=== PATIENT | female | born 1980 | race Two or more races ===

== ENCOUNTER 2017-03-09 23:52 | Emergency (ER) | payer SELFPAY ==
[2017-03-10] MEDS ORDERED: ONDANSETRON 4 MG/2 ML VIAL IVP ONE ×2 (00:19→01:53)
[2017-03-10] MEDS ORDERED: HYDROmorphONE/DILAUDID 1 MG/ML SYR IVP ONE ×2 (00:19→01:03)
[2017-03-10] MEDS ORDERED: NS 1,000 ML IV ONE ×2 (00:19→01:53)
--- NOTE | 2017-03-10 00:36 | EDPHY ---
H & P Stated Complaint: l flank pain, nausea, vomiting HPI/ROS: HPI CHIEF COMPLAINT: Left flank pain HISTORY OF PRESENT ILLNESS: This patient 36-year-old female, she presents emergency room left flank pain. She describes as sharp stabbing. She states around 11:30 p.m. she got up to urinate and felt dysuria burning at her urethra. This then somewhat subsided she went downstairs to drink water. She ended up developing severe 9/10 left-sided sharp stabbing flank pain. With associated nausea but no vomiting. No fever. She now has 2/10 left flank pain at this time. No history of kidney stones or pathology. Past Medical History: No significant medical history Past Surgical History: No significant surgical history Social History: Denies daily use drugs alcohol tobacco products. Family History: Noncontributory ROS REVIEW OF SYSTEMS: A comprehensive 10 point review of systems is otherwise negative aside from elements mentioned in the history of present illness. Exam Constitutional appears well nontoxic triage nursing summary reviewed, vital signs reviewed, awake/alert. Eyes normal conjunctivae and sclera, EOMI, PERRLA. HENT normal inspection, atraumatic, moist mucus membranes, no epistaxis, neck supple/ no meningismus, no raccoon eyes. Respiratory clear to auscultation bilaterally, normal breath sounds, no respiratory distress, no wheezing. Cardiovascular rate normal, regular rhythm, no murmur, no edema, distal pulses normal. Gastrointestinal soft, non-tender, no rebound, no guarding, normal bowel sounds, no distension, no pulsatile mass. Genitourinary mild left CVA tenderness Musculoskeletal no midline vertebral tenderness, full range of motion, no calf swelling, no tenderness of extremities, no meningismus, good pulses, neurovascularly intact. Skin pink, warm, & dry, no rash, skin atraumatic. Neurologic awake, alert and oriented x 3, AAOx3, moves all 4 extremities equally, motor intact, sensory intact, CN II-XII intact, normal cerebellar, normal vision, normal speech. Psychiatric normal mood/affect. Heme/Lymph/Immune no lymphadenopathy. Differential Diagnosis: Includes but is not limited to kidney stone, hydroureter, hydronephrosis, pyelonephritis, UTI Medical Decision Making: Plan for this patient IV establishment, pain medicine , urinalysis blood work CT abdomen pelvis without contrast for kidney stone evaluation. test. Re-evaluation: 0312AM: Patient's CT scan results show a 3 mm left-sided UVJ stone. Stone is almost in the bladder. There is mild hydro. I have updated the patient. She is comfortable at this time. No ongoing severe pain vomiting or fever. Urinalysis does not indicate a UTI. I will have her follow up with Urology, Flomax, drink lots of fluids Kelley and Zofran. She understands return emergency room if develops worsening pain vomiting or fever. Urine strainer. Source: Patient - Personal History LMP (Females 10-55): Now - Medical/Surgical History Hx Asthma: No Hx Chronic Respiratory Disease: No Hx Diabetes: No Hx Cardiac Disease: No Hx Renal Disease: No Hx Cirrhosis: No Hx Alcoholism: No Hx HIV/AIDS: No Hx Splenectomy or Spleen Trauma: No Other PMH: Denies - Social History Smoking Status: Never smoked Constitutional: Initial Vital Signs Heart Rate 110 H 03/09/17 23:53 Respiratory Rate 30 H 03/09/17 23:53 Blood Pressure 144/110 H 03/09/17 23:53 O2 Sat (%) 100 03/09/17 23:53 O2 Delivery Mode Room Air Allergies/Adverse Reactions: Penicillins Allergy (Verified 03/09/17 23:56) Home Medications: Medication Instructions Recorded Hydrocodone/APAP 5/325 [Kelley 1 - 2 tab PO Q4H PRN #10 tab 03/10/17 5/325] Ondansetron HCl [Zofran] 4 mg PO Q4-6PRN PRN #10 tablet 03/10/17 Tamsulosin HCl [Flomax] 0.4 mg PO DAILY #10 cap 03/10/17 Medical Decision Making - Data Points Laboratory Results: Laboratory Results 03/10/17 00:07 03/10/17 00:07 03/10/17 03/10/17 03/10/17 00:45 00:07 00:07 WBC RBC Hgb Hct MCV MCH MCHC RDW Plt Count MPV Neut % (Auto) Lymph % (Auto) [place] % (Auto) Eos % (Auto) Baso % (Auto) Nucleat RBC Rel Count Absolute Neuts (auto) Absolute Lymphs (auto) Absolute Monos (auto) Absolute Eos (auto) Absolute Basos (auto) Absolute Nucleated RBC Immature Gran % Immature Gran # Sodium 141 mEq/L mEq/L (134-144) Potassium 3.4 mEq/L L mEq/L (3.5-5.2) Chloride 102 mEq/L mEq/L (97-110) Carbon Dioxide 22 mEq/l mEq/l (22-31) Anion Gap 17 mEq/L H mEq/L (8-16) BUN 12 mg/dL mg/dL (7-23) Creatinine 0.7 mg/dL mg/dL (0.6-1.0) Estimated GFR > 60 Glucose 77 mg/dL mg/dL (70-100) Calcium 9.8 mg/dL mg/dL (8.5-10.4) Total Bilirubin 0.5 mg/dL mg/dL (0.1-1.4) Conjugated Bilirubin 0.2 mg/dL mg/dL (0.0-0.5) Unconjugated Bilirubin 0.3 mg/dL mg/dL (0.0-1.1) AST 21 IU/L IU/L (14-46) ALT 23 IU/L IU/L (9-52) Alkaline Phosphatase 45 IU/L IU/L (38-126) Total Protein 8.2 g/dL g/dL (6.3-8.2) Albumin 4.6 g/dL g/dL (3.5-5.0) Lipase 142.0 IU/L IU/L (23-300) Beta HCG, Qual NEGATIVE Urine Color YELLOW Urine Appearance CLEAR Urine pH 7.0 (5.0-7.5) Ur Specific [place] 1.010 (1.002-1.030) Urine Protein NEGATIVE (NEGATIVE) Urine Ketones NEGATIVE (NEGATIVE) Urine Blood 2+ H (NEGATIVE) Urine Nitrate NEGATIVE (NEGATIVE) Urine Bilirubin NEGATIVE (NEGATIVE) Urine Urobilinogen NEGATIVE EU EU (0.2-1.0) Ur Leukocyte Esterase NEGATIVE (NEGATIVE) Urine RBC 3-5 /hpf H /hpf (0-3) Urine WBC 1-3 /hpf /hpf (0-3) Ur Epithelial Cells TRACE /lpf /lpf (NONE-1+) Urine Mucus TRACE /lpf /lpf (NONE-1+) Urine Glucose NEGATIVE (NEGATIVE) 03/10/17 00:07 WBC 8.57 10^3/uL 10^3/uL (3.80-9.50) RBC 4.64 10^6/uL 10^6/uL (4.18-5.33) Hgb 14.1 g/dL g/dL (12.6-16.3) Hct 40.9 % % (38.0-47.0) MCV 88.1 fL fL (81.5-99.8) MCH 30.4 pg pg (27.9-34.1) MCHC 34.5 g/dL g/dL (32.4-36.7) RDW 12.4 % % (11.5-15.2) Plt Count 272 10^3/uL 10^3/uL (150-400) MPV 13.0 fL H fL (8.7-11.7) Neut % (Auto) 48.3 % % (39.3-74.2) Lymph % (Auto) 43.6 % % (15.0-45.0) [place] % (Auto) 6.7 % % (4.5-13.0) Eos % (Auto) 0.5 % L % (0.6-7.6) Baso % (Auto) 0.7 % % (0.3-1.7) Nucleat RBC Rel Count 0.0 % % (0.0-0.2) Absolute Neuts (auto) 4.14 10^3/uL 10^3/uL (1.70-6.50) Absolute Lymphs (auto) 3.74 10^3/uL H 10^3/uL (1.00-3.00) Absolute Monos (auto) 0.57 10^3/uL 10^3/uL (0.30-0.80) Absolute Eos (auto) 0.04 10^3/uL 10^3/uL (0.03-0.40) Absolute Basos (auto) 0.06 10^3/uL 10^3/uL (0.02-0.10) Absolute Nucleated RBC 0.00 10^3/uL 10^3/uL (0-0.01) Immature Gran % 0.2 % % (0.0-1.1) Immature Gran # 0.02 10^3/uL 10^3/uL (0.00-0.10) Sodium Potassium Chloride Carbon Dioxide Anion Gap BUN Creatinine Estimated GFR Glucose Calcium Total Bilirubin Conjugated Bilirubin Unconjugated Bilirubin AST ALT Alkaline Phosphatase Total Protein Albumin Lipase Beta HCG, Qual Urine Color Urine Appearance Urine pH Ur Specific [place] Urine Protein Urine Ketones Urine Blood Urine Nitrate Urine Bilirubin Urine Urobilinogen Ur Leukocyte Esterase Urine RBC Urine WBC Ur Epithelial Cells Urine Mucus Urine Glucose Medications Given: Discontinued Medications Hydromorphone HCl (Dilaudid) 0.5 mg IVP EDNOW ONE Stop: 03/10/17 00:20 Last Admin: 03/10/17 00:25 Dose: 0.5 mg Hydromorphone HCl (Dilaudid) 0.5 mg IVP EDNOW ONE Stop: 03/10/17 01:04 Last Admin: 03/10/17 01:07 Dose: 0.5 mg Sodium Chloride (Ns) 1,000 mls @ 0 mls/hr IV EDNOW ONE; Wide Open PRN Reason: Protocol Stop: 03/10/17 00:20 Last Admin: 03/10/17 00:27 Dose: 1,000 mls Sodium Chloride (Ns) 1,000 mls @ 0 mls/hr IV ONCE ONE PRN Reason: Wide Open Stop: 03/10/17 01:54 Last Admin: 03/10/17 01:55 Dose: 1,000 mls Ketorolac Tromethamine (Toradol) 15 mg IVP EDNOW ONE Stop: 03/10/17 01:20 Last Admin: 03/10/17 01:31 Dose: 15 mg Ondansetron HCl (Zofran) 4 mg IVP EDNOW ONE Stop: 03/10/17 00:20 Last Admin: 03/10/17 00:25 Dose: 4 mg Ondansetron HCl (Zofran) 4 mg IVP EDNOW ONE Stop: 03/10/17 01:54 Last Admin: 03/10/17 01:56 Dose: 4 mg Departure - Departure Disposition: Home, Routine, Self-Care Clinical Impression: Kidney stone Condition: Good Instructions: Renal Colic (ED), Kidney Stones (ED), Flank Pain (ED) Additional Instructions: 1. Drink lots of fluids stay well-hydrated. 2. Return to the emergency room if you develop worsening pain questions or concerns. 3. You have a very small stone on the left distal ureter it is almost into your bladder. Referrals: OBEY HUDSON [Primary Care Provider] - As per Instructions Andrew Pozo MD [Medical Doctor] - As per Instructions Prescriptions: Hydrocodone/APAP 5/325 [Kelley 5/325] 1 - 2 tab PO Q4H PRN #10 tab PRN Reason: Pain, Moderate Ondansetron HCl [Zofran] 4 mg PO Q4-6PRN PRN #10 tablet PRN Reason: Nausea/Vomiting, Use 1st Tamsulosin HCl [Flomax] 0.4 mg PO DAILY #10 cap
[2017-03-10 00:40] LABS: ALANINE AMINOTRANSFERASE 23 IU/L (9-52); ALBUMIN 4.6 g/dL (3.5-5.0); ALKALINE PHOSPHATASE 45 IU/L (38-126); ANION GAP 17 mEq/L (8-16); ASPARTATE AMINOTRANSFERASE 21 IU/L (14-46); BILIRUBIN,TOTAL 0.5 mg/dL (0.1-1.4); BILIRUBIN-CONJUGATED 0.2 mg/dL (0.0-0.5); BILIRUBIN-UNCONJUGATED 0.3 mg/dL (0.0-1.1); CALCIUM 9.8 mg/dL (8.5-10.4); CARBON DIOXIDE 22 mEq/l (22-31); CHLORIDE 102 mEq/L (97-110); CREATININE 0.7 mg/dL (0.6-1.0); GLOMERULAR FILTRATION RATE > 60; GLUCOSE 77 mg/dL (70-100); POTASSIUM 3.4 mEq/L (3.5-5.2); SODIUM 141 mEq/L (134-144); TOTAL PROTEIN 8.2 g/dL (6.3-8.2)
[2017-03-10 00:50] LABS: % IMMATURE GRANULYOCYTES 0.2 % (0.0-1.1); ABSOLUTE IMMATURE GRANULOCYTES 0.02 10^3/uL (0.00-0.10); ADD DIFF? NO; ADD MORPH? NO; ADD SCAN? NO; ATYPICAL LYMPHOCYTE FLAG 10 (0-99); FRAGMENT RBC FLAG 0 (0-99); HEMATOCRIT 40.9 % (38.0-47.0); HEMOGLOBIN 14.1 g/dL (12.6-16.3); LEFT SHIFT FLG 0 (0-99); LIPEMIA HEMOLYSIS FLAG 90 (0-99); MEAN CELL HEMOGLOBIN 30.4 pg (27.9-34.1); MEAN CELL HEMOGLOBIN CONCENTR. 34.5 g/dL (32.4-36.7); MEAN CELL VOLUME 88.1 fL (81.5-99.8); PLATELET CLUMPS FLAG 10 (0-99); PLATELET COUNT 272 10^3/uL (150-400); RED BLOOD CELL COUNT 4.64 10^6/uL (4.18-5.33); RED CELL DISTRIBUTION WIDTH 12.4 % (11.5-15.2)
[2017-03-10 00:56] LABS: COLOR YELLOW; LEUKOCYTE ESTERASE,URINE NEGATIVE (NEGATIVE); NITRITE,URINE NEGATIVE (NEGATIVE)
[2017-03-10 00:59] LABS: MUCUS TRACE /lpf (NONE-1+)
[2017-03-10] MEDS ORDERED: KETOROLAC 15 MG/1 ML SDV IVP ONE (01:19)
[2017-03-10] MEDS ORDERED: ONDANSETRON 4 MG/2 ML VIAL ONE (01:51)
[2017-03-10 01:58] VITALS: RESP 16
[2017-03-10 03:32] VITALS: BP 125/83; PULSE 85; TEMP 98.2; O2SAT 99
== END 2017-03-10 03:32 | disposition home or self-care (01) ==
DX: N20.0 Calculus of kidney (principal); E86.9 Volume depletion, unspecified
CPT/HCPCS: 96374; J1170; J1885; J2405

== ENCOUNTER 2017-03-10 13:28 | Emergency (ER) | payer SELFPAY ==
[2017-03-10 13:37] VITALS: BP 135/86; PULSE 95; RESP 20; TEMP 98.2; O2SAT 100
== END 2017-03-10 14:29 | disposition left against medical advice (07) ==
DX: Z53.21 Procedure and treatment not carried out due to patient leaving prior to being seen by health care provider (principal)

== ENCOUNTER 2017-03-10 16:58 | Observation (INO) | payer SELFPAY ==
[2017-03-10] MEDS ORDERED: ONDANSETRON 4 MG/2 ML VIAL IVP ONE ×2 (17:58→21:18)
[2017-03-10] MEDS ORDERED: KETOROLAC 30 MG/1 ML SDV IVP ONE (17:58)
[2017-03-10] MEDS ORDERED: NS 1,000 ML IV ONE (17:58)
--- NOTE | 2017-03-10 17:59 | EDPHY ---
H & P Smoking Status: Never smoked Time Seen by Provider: 03/10/17 17:35 HPI/ROS: CHIEF COMPLAINT: Kidney stone, left flank pain HISTORY OF PRESENT ILLNESS: 36-year-old female presents to the emergency department by private vehicle complaining of left flank pain. The patient was seen in the emergency department earlier today and was diagnosed with a left distal ureteral calculi. She was discharged with Flomax and hydrocodone. She was feeling better when she was discharged although she had recurring pain. She saw her primary care provider earlier this morning and had an IM shot of Toradol. The patient has had continued ongoing left flank pain. She feels nauseous although no vomiting. She has taken the Flomax as prescribed. No diarrhea. No real abdominal pain. No fevers or chills. Family history of kidney stones although the patient does not think that she has ever had a kidney stone in the past. REVIEW OF SYSTEMS: Constitutional: No fever, no chills. Eyes: No double or blurry vision. ENT: No sore throat. Respiratory: No cough, no shortness of breath. Cardiac: No chest pain. Gastrointestinal: Nausea. No abdominal pain or diarrhea. Genitourinary: No dysuria. Musculoskeletal: No neck or back pain. Skin: No rashes. Neurological: No headache. (WilliamAllyssa) Past Medical/Surgical History: Negative (Allyssa Thomas) Social History: (Allyssa Thomas) Physical Exam: General Appearance: Alert, anxious, hyperventilating 94% on room air Eyes: Pupils equal and round. Extraocular motions are all intact. ENT: Mouth: Mucous membranes moist. Respiratory: No wheezing, rhonchi, or rales, lungs are clear to auscultation. Cardiovascular: Regular rate and rhythm. Gastrointestinal: Abdomen is soft and nontender, no masses, no rebound or guarding, bowel sounds normal. Positive CVA tenderness on the left, none on the right. Neurological: Alert and oriented x 3, cranial nerves II through XII grossly intact Skin: Warm and dry, no rashes. Musculoskeletal: Nontender to palpate along the cervical, thoracic or lumbar spine. Neck is supple. Extremities: Full range of motion and no peripheral edema. Psychiatric: Patient is oriented X 3, there is no agitation. (WilliamAllyssa Ladonna) Constitutional: Initial Vital Signs Temperature (C) 36.3 C 03/10/17 17:04 Heart Rate 118 H 03/10/17 17:04 Respiratory Rate 18 03/10/17 17:04 Blood Pressure 135/92 H 03/10/17 17:04 O2 Sat (%) 94 03/10/17 17:04 O2 Delivery Mode Room Air Allergies/Adverse Reactions: Penicillins Allergy (Verified 03/10/17 13:32) Home Medications: Medication Instructions Recorded Ibuprofen [Motrin (*)] 200 mg PO DAILY PRN 03/10/17 oxyCODONE IR [Oxycodone Ir (*)] 5 - 10 mg PO Q4HRS PRN #0 tab 03/11/17 Medical Decision Making ED Course/Re-evaluation: 36-year-old female presents to the emergency department with ongoing left flank pain and nausea. Patient was seen in the emergency department earlier and was diagnosed with a left distal ureteral stone measuring 3 mm. The patient took her Flomax and Zofran as prescribed. She still feels nauseous. She feels that she is unable to control the pain. She was prescribed hydrocodone and she does not like how this is making her feel. Patient had an i-STAT done which revealed normal creatinine. Patient received IV normal saline as well as 15 mg of IV Toradol and additional 4 mg Zofran ODT as well as IV normal saline. Patient was feeling better. She was starting to drink something but then she was becoming nauseous. The pain is returning now. Because the patient has continued ongoing pain, patient will be admitted to the hospitalist for pain control. I do not think repeat CT imaging of the abdomen and pelvis is necessary. This was discussed with the patient and she verbalized understanding and agreed. I spoke with Dr. Kyle Madera, urologist on-call, at 11:35 p.m.. He is aware that the patient is being admitted to the hospitalist and will see the patient in the morning. (Allyssa Thomas) I did not see this patient while she was in the emergency department. However her care was discussed with the PA while the patient was in the department. I agree with treatment plan and management (Maicol Chavira) Differential Diagnosis: Including but not limited to renal colic, obstructive uropathy, urinary tract infection, pyelonephritis (Rosin,Allyssa M) - Data Points Medications Given: Discontinued Medications Acetaminophen (Tylenol) 650 mg PO Q4HRS PRN PRN Reason: Pain, Mild/Fever, Can Take PO Stop: 09/07/17 02:55 Last Admin: 03/11/17 10:40 Dose: 650 mg Sodium Chloride (Ns) 1,000 mls @ 0 mls/hr IV ONCE ONE PRN Reason: Wide Open Stop: 03/10/17 17:59 Last Admin: 03/10/17 18:03 Dose: 1,000 mls Sodium Chloride (1/2 Ns) 1,000 mls @ 100 mls/hr IV CONT DYLAN Stop: 09/07/17 02:59 Last Admin: 03/11/17 03:26 Dose: 1,000 mls Ketorolac Tromethamine (Toradol) 15 mg IVP EDNOW ONE Stop: 03/10/17 17:59 Last Admin: 03/10/17 18:03 Dose: 15 mg Ketorolac Tromethamine (Toradol) 30 mg IVP Q6HRS PRN PRN Reason: Pain, Inflammatory Stop: 03/16/17 02:55 Last Admin: 03/11/17 08:37 Dose: 30 mg Ondansetron HCl (Zofran) 4 mg IVP EDNOW ONE Stop: 03/10/17 17:59 Last Admin: 03/10/17 18:03 Dose: 4 mg Ondansetron HCl (Zofran) 4 mg IVP EDNOW ONE Stop: 03/10/17 21:19 Last Admin: 03/10/17 21:25 Dose: 4 mg Oxycodone HCl (Oxycodone Ir) 5 - 10 mg PO Q4HRS PRN PRN Reason: Pain, Severe Able to Take PO Stop: 03/21/17 02:55 Last Admin: 03/11/17 11:06 Dose: 5 mg Tamsulosin HCl (Flomax) 0.4 mg PO DAILY DYLAN Stop: 09/07/17 08:59 Last Admin: 03/11/17 08:37 Dose: 0.4 mg Departure - Departure Disposition: [facility] Clinical Impression: Calculus of distal left ureter Condition: Good
[2017-03-11] MEDS ORDERED: ACETAMINOPHEN 325 MG TAB PO PRN (02:56)
[2017-03-11] MEDS ORDERED: ONDANSETRON 4 MG/2 ML VIAL IVP PRN (02:56)
[2017-03-11] MEDS ORDERED: ONDANSETRON DISINTEGRATING 4 MG TAB PO PRN (02:56)
[2017-03-11] MEDS ORDERED: oxyCODONE IR 5 MG TAB PO PRN (02:56)
[2017-03-11] MEDS ORDERED: KETOROLAC 30 MG/1 ML SDV IVP PRN (02:56)
[2017-03-11] MEDS ORDERED: 1/2 NS 1,000 ML IV SCH (03:00)
--- NOTE | 2017-03-11 03:30 | GHP ---
[f rep st] HISTORY AND PHYSICAL DATE OF ADMISSION: 03/10/2017 CHIEF COMPLAINT: Left flank pain. HISTORY OF PRESENT ILLNESS: The patient is a 36-year-old female with no significant past medical history who presents to the emergency department with left-sided flank pain. She was seen earlier in the day and underwent CT imaging which showed a 3 mm distal left ureterovesical junction obstructive nephrolithiasis with mild hydroureteronephrosis. She was discharged home with Zofran, Flomax and [place] for pain management. However, she states the oral pain medications were not adequately controlling her pain and she returned to the emergency department this evening. She denies fevers, chills, nausea or vomiting. At the time of my evaluation, she is actually feeling quite a bit better. She denies nausea. Her pain is currently controlled. She is admitted to the hospital for pain control. PAST MEDICAL HISTORY: None. MEDICATIONS: Zofran, Flomax and [place] as prescribed by the emergency department on March 10, and p.r.n. ibuprofen. She takes no other prescription medications. SOCIAL HISTORY: The patient is . Her is present at the bedside. She is a nonsmoker. FAMILY HISTORY: Reviewed and noncontributory. REVIEW OF SYSTEMS: A 10-point review of systems was performed and is negative except as per HPI. OBJECTIVE: VITAL SIGNS: Temperature is 37.1, blood pressure 121/82, heart rate 82, respiratory rate 18, she is 99% on room air. GENERAL: The patient is awake, alert, oriented, in no acute distress. HEENT: Head is atraumatic, normocephalic. Pupils equal, round, react to light. Extraocular motion intact. Oropharynx is clear. Mucous membranes are moist. NECK: Supple. There is no JVD. HEART: Regular rate and rhythm without murmur. LUNGS: Clear to auscultation bilaterally. ABDOMEN: Soft, nondistended, nontender with normoactive bowel tones. She has no CVA tenderness. EXTREMITIES: Without cyanosis, clubbing, or edema. NEUROLOGIC: Grossly nonfocal. LABORATORY DATA: CBC from earlier today shows normal white count of 8.5. Basic metabolic panel, her sodium has gone from 141 to 147. Her chloride has gone from 102 to 112. Potassium 3.5. Creatinine is normal at 0.6. Urinalysis earlier today showed 2+ blood, no leukocytes and negative nitrites. ASSESSMENT AND PLAN: The patient is a 36-year-old female who is admitted for pain control with a 3 mm kidney stone. 1. Nephrol[address]iasis. CT imaging from March 10 shows a 3 mm distal left ureterovesical junction stone causing some obstruction with mild hydronephrosis. Her condition is improved with IV Toradol which will be continued. Will also continue her on Flomax and provide p.r.n. oxycodone for pain. I have instructed her to strain her urine. Should she pass a stone we can send for analysis. There is no evidence of infection. I will repeat a urinalysis now. Continue to monitor her for fevers or signs of infection. Hopefully the stone will pass soon and she can discharge home tomorrow. 2. Hypernatremia and hyperchloremia. She is likely hemoconcentrated with poor oral intake in the setting of a kidney stone. Will give her some half-normal saline and recheck her labs in the morning. 3. Code status: Full code. 4. Deep venous thrombosis prophylaxis. Patient is low risk. We will place SCDs. 5. Disposition. Patient admitted to observation status. /[id number]/MODL MTDD
[2017-03-11 04:39] LABS: COLOR YELLOW; LEUKOCYTE ESTERASE,URINE NEGATIVE (NEGATIVE); NITRITE,URINE NEGATIVE (NEGATIVE)
[2017-03-11 04:53] LABS: MUCUS TRACE /lpf (NONE-1+)
[2017-03-11 05:35] LABS: % IMMATURE GRANULYOCYTES 0.2 % (0.0-1.1); ABSOLUTE IMMATURE GRANULOCYTES 0.01 10^3/uL (0.00-0.10); ADD DIFF? NO; ADD MORPH? NO; ADD SCAN? NO; ATYPICAL LYMPHOCYTE FLAG 10 (0-99); FRAGMENT RBC FLAG 0 (0-99); HEMATOCRIT 32.3 % (38.0-47.0); HEMOGLOBIN 10.9 g/dL (12.6-16.3); LEFT SHIFT FLG 0 (0-99); LIPEMIA HEMOLYSIS FLAG 80 (0-99); MEAN CELL HEMOGLOBIN 30.3 pg (27.9-34.1); MEAN CELL HEMOGLOBIN CONCENTR. 33.7 g/dL (32.4-36.7); MEAN CELL VOLUME 89.7 fL (81.5-99.8); MEAN PLATELET VOLUME 12.9 fL (8.7-11.7); PLATELET CLUMPS FLAG 0 (0-99); PLATELET COUNT 172 10^3/uL (150-400); RED CELL DISTRIBUTION WIDTH 12.7 % (11.5-15.2)
[2017-03-11 05:41] LABS: ANION GAP 9 mEq/L (8-16); CALCIUM 8.1 mg/dL (8.5-10.4); CARBON DIOXIDE 20 mEq/l (22-31); CHLORIDE 110 mEq/L (97-110); CREATININE 0.6 mg/dL (0.6-1.0); GLOMERULAR FILTRATION RATE > 60; GLUCOSE 86 mg/dL (70-100); POTASSIUM 3.6 mEq/L (3.5-5.2); SODIUM 139 mEq/L (134-144)
--- NOTE | 2017-03-11 08:31 | GCON ---
[f rep st] CONSULTATION DATE OF CONSULTATION: 03/11/2017 REFERRING PHYSICIAN: Britney Alfaro MD REASON FOR CONSULTATION: Ureteral calculus. HISTORY OF PRESENT ILLNESS: I am asked to evaluate this 36-year-old female who was admitted with re current pain from a 3 mm left lower ureteral stone. The patient has no prior history but had presen gilda 1 day earlier to the emergency department with acute left flank pain. At that time, noncontrast CT scan demonstrated the stone. Her pain was initially controlled but recurred as the day progress ed, and she returned to the emergency department where pain control was incomplete. She was admitte d to the hospitalist service for pain control. In the middle of the night, she developed more urina ry urgency and frequency, and the pain resolved although she is not sure if she actually passed the stone. She has had no pain since that time. PAST MEDICAL HISTORY: Otherwise unremarkable. She is on no regular medicines but is currently taki ng Flomax. Zofran, and [place]. She has no prior history of stones. SOCIAL HISTORY: Does not smoke. FAMILY HISTORY: Negative. EXAM: GENERAL: She is alert and comfortable. ABDOMEN: Soft. She has no CVA tenderness. IMAGING: CT scan was reviewed showing a 3 mm distal left ureteral stone which may have passed at th is time. PLAN: I discussed options with the patient. 3 mm stones typically will pass and her pain syndrome is certainly consistent with the stone either having just passed or ready to pass. I explained that if she continues to have severe pain requiring IV narcotics, that intervention may be indicated. A t this point, she would rather try to pass the stone on her own and I have recommended continuing th ose medications. It may be difficult to visualize the stone on a plain x-ray so I think that we sharon l have to depend on her symptoms. From a urologic standpoint, she can be discharged this morning if she is comfortable. If she has further attacks, she should probably be made n.p.o. for possible in tervention. She should also make a followup appointment to discuss preventive measures or followup. /[id number]/MODL
[2017-03-11 08:44] VITALS: RESP 18
[2017-03-11] MEDS ORDERED: NS W/ 20 KCl/L 1,000 ML IV SCH (08:45)
[2017-03-11] MEDS ORDERED: TAMSULOSIN HCL 0.4 MG CAP PO SCH (09:00)
--- NOTE | 2017-03-11 11:27 | HOSPPROG ---
Hospitalist Progress Note Assessment/Plan: 36 yo female with 3 mm Left obstructive nephrolithiasis. Was seen by Dr. Madera this morning and her sx's were better and possible Discharge was being considered. She again is very symptomatic at this time and not ready for discharge. We discussed making her NPO for possible intervention, but given the size of the stone's and possibility that they will pass, she wants conservative mgmt at this time. New patient to my care. #left sided nephrolithiasis #Hypernatremia, resolved with IVF #Dehydration, resolved #Acute pain syndrome Plan: -Keep overnight if she continues to be symptomatic. Does not feel that she would be successfully discharged -pain mgmt -NSAIDS -IVF: Ill change to NS given improvement of Hypernatremia and Na now 139 -Flomax -Strain urine -She does not want NPO status at midnight. Will monitor for now. -SCD's Subjective: Still with left sided abd pain. Has not passed stone yet. Afebrile. Tolerating diet. No N/V Objective: Vital Signs Temp Pulse Resp BP Pulse Ox 36.6 C 93 18 120/87 H 100 03/11/17 08:43 03/11/17 08:43 03/11/17 08:43 03/11/17 08:43 03/11/17 08:43 Laboratory Results 03/11/17 04:27 03/11/17 04:27 03/10/17 03/11/17 03/12/17 05:59 05:59 05:59 Intake Total 1650 Output Total 625 750 Balance 1025 -750 - Physical Exam Constitutional: no apparent distress, appears nourished, not in pain Eyes: PERRL, anicteric sclera, EOMI Ears, Nose, Mouth, Throat: moist mucous membranes Cardiovascular: regular rate and rhythym, No edema Respiratory: no respiratory distress, no rales or rhonchi, clear to auscultation Gastrointestinal: normoactive bowel sounds, soft, non-tender abdomen, no palpable masses, No tenderness, No guarding, No rebound Skin: warm Neurologic: AAOx3 Psychiatric: interacting appropriately, not anxious, not encephalopathic ICD10 Worksheet Patient Problems: Problems Problem Status Onset Calculus of distal left ureter Acute
[2017-03-11 11:54] VITALS: BP 132/84; PULSE 86; TEMP 98.4; O2SAT 99
--- NOTE | 2017-03-11 14:11 | PDDCSUM ---
Discharge Summary Discharge Summary: HPI/Hospital course 36 yo female with 3 mm Left obstructive nephrolithiasis. Was seen by Dr. Madera this morning and her sx's were better and possible Discharge was being considered. She then became very symptomatic and discharge was held until she passed the stone later that day. DDX: #left sided nephrolithiasis #Hypernatremia, resolved with IVF #Dehydration, resolved #Acute pain syndrome -will provide pain meds in case pain persists/returns Discharge exam: reference my note from earlier today Discharge meds: Oxycontin 5mg script provided F/u: with PCP in one week. Return precautions provided Total time spent on discharge is 35 minutes
== END 2017-03-11 14:37 | disposition home or self-care (01) ==
LOC: F1N 03-11 00:35 → OBSVTOIN 03-11 12:16 → INTOOBSV 03-11 12:16
PROVIDERS: ADMIT Hospitalist; ATTEND Hospitalist
DX: N20.0 Calculus of kidney (principal); E87.0 Hyperosmolality and hypernatremia; R52 Pain, unspecified
CPT/HCPCS: 82365-90; 82947-QW; 96374; G0378; J1885; J2405

== ENCOUNTER → 2018-05-17 | Outpatient (CLI) | payer OTHER | LOC: BMCIMAGING 15:19 | PROVIDERS: ATTEND Family Medicine | DX: Z87.442 Personal history of urinary calculi (principal) ==

== ENCOUNTER → 2018-11-30 | Outpatient (CLI) | payer OTHER | LOC: BMCIMAGING 13:40 | PROVIDERS: ATTEND Family Medicine | DX: R10.2 Pelvic and perineal pain (principal); Z87.42 Personal history of other diseases of the female genital tract ==